=== PATIENT | female | born 1995 | race African-American/Black ===

== ENCOUNTER 2016-06-20 17:08 | Emergency (ER) | payer MEDICAID, OTHER ==
[~2016-06-20] VITALS: Ht 165.1 cm; Wt 65.0 kg
[2016-06-20 17:17] VITALS: BP 123/81; PULSE 74; RESP 15; TEMP 98.8; O2SAT 98
== END 2016-06-20 20:04 | disposition left against medical advice (07) ==
LOC: NED 17:08
DX: Z53.21 Procedure and treatment not carried out due to patient leaving prior to being seen by health care provider (principal)
CPT/HCPCS: 99281

== ENCOUNTER 2016-11-29 15:49 | Emergency (ER) | payer MEDICAID ==
[~2016-11-29] VITALS: Ht 165.1 cm; Wt 61.0 kg
[2016-11-29 15:51] VITALS: BP 125/85; PULSE 79; RESP 15; TEMP 98.4; O2SAT 99
--- NOTE | 2016-11-29 17:23 | PD ---
HPI Chief Complaint: Allergic/Adverse Reaction Time Seen by Provider: 17:22 Travel History International Travel<30 days: No Contact w/Intl Traveler<30days: No Traveled to known affect area: No History of Present Illness HPI 21-year-old female presents to emergency Department with complaint of a rash to her face and anterior neck 3 days. Reports rash is itchy. Denies airway edema , difficulty breathing, shortness of breath, wheezing. Denies new exposures to lotions, soaps, detergents, medications, foods, makeups, environmental exposures. Denies fever, vomiting. Took Benadryl last night or symptom management with relief. Symptoms are mild in severity. No known allergies. Has no other medical complaints. No other modifying factors or associated signs and symptoms. PFSH Past Medical History ?: Not LMP: BC Social History Tobacco Use: No Allergies-Medications (Allergen,Severity, Reaction): Coded Allergies: No Known Allergies (Unverified , 11/29/16) Reported Meds & Prescriptions Reported Meds & Active Scripts Active Deltasone (Prednisone) 20 Mg Tab 40 Mg PO DAILY 4 Days start 11/30/2016 Review of Systems Except as stated in HPI: all other systems reviewed are Neg Physical Exam Narrative GENERAL: Well-nourished, well-developed black female patient, in no acute distress; afebrile, nontoxic-appearing SKIN: Warm and dry. No maculopapular areas that are to the face. Anterior neck is erythemic. No cellulitic process noted. No lymphadenopathy. HEAD: Atraumatic. Normocephalic. EYES: Pupils equal and round. No scleral icterus. No injection or drainage. ENT: Mucosa pink and moist. No erythema or exudates. No uvular edema. No uvular , palatal, or tonsillar deviation. Airway patent. EARS: Bilateral pinnae and external canals appear within normal limits. Bilateral tympanic membranes without erythema, dullness or perforation. NECK: Trachea midline. No lymphadenopathy. CARDIOVASCULAR: Regular rate and rhythm. No murmur appreciated. RESPIRATORY: No accessory muscle use. Clear to auscultation. Breath sounds equal bilaterally. No retractions or tachypnea. No audible wheezing or stridor. GASTROINTESTINAL: Abdomen soft, non-tender, nondistended. Hepatic and splenic margins not palpable. Bowel sounds are active 4 quadrants. MUSCULOSKELETAL: No obvious deformities. No clubbing. No cyanosis. No edema. NEUROLOGICAL: Awake and alert. Oriented 3. No obvious cranial nerve deficits. Motor grossly within normal limits. Normal speech. Moves all extremities. 5/5 strength to all extremities. PSYCHIATRIC: Appropriate mood and affect; insight and judgment normal. Data Data Last Documented VS Vital Signs Date Time Temp Pulse Resp B/P (MAP) Pulse Ox O2 Delivery O2 Flow Rate FiO2 11/29/16 15:51 98.4 79 15 125/85 (98) 99 Orders Orders Prednisone (Deltasone) (11/29/16 17:30) Diphenhydramine (Benadryl) (11/29/16 17:30) [facility] Medical Decision Making Medical Screen Exam Complete: Yes Emergency Medical Condition: Yes Medical Record Reviewed: Yes Differential Diagnosis Contact dermatitis, allergic reaction, hives Narrative Course 21-year-old female physical exam consistent with allergic reaction or contact dermatitis. She is in no acute distress. Airway is patent. She denies shortness of breath, airway edema. Denies new exposures. Benadryl and Deltasone administered in the ER. Ultrasound prescribed for home. Instructed patient to continue to take Benadryl as directed and as needed for rash/ itching. Instructed patient to follow up with dermatology and allergy testing. Instructed patient to follow up with primary care provider. Patient verbalizes understanding and agreement with treatment plan. Patient is medically cleared and stable for discharge. Discussed reasons to return to the emergency department. Patient agrees with treatment plan. The patients vital signs are stable and the patient is stable for outpatient follow-up and treatment. Patient discharged home, stable and in no acute distress. Diagnosis Primary Impression: Rash and nonspecific skin eruption Referrals: Piping Manager Primary Care Physician Patient Instructions: Acute Rash (ED), General Allergic Reaction (ED), General Instructions, Urticaria (ED) Departure Forms: Tests/Procedures, Work Release Enter return to work date: Nov 30, 2016 Additional Instructions: Take oral steroids as prescribed [id number] topicals to reduce itch Benadryl as directed and as needed to reduce itch Follow-up with your primary care provider Return to the emergency department immediately with worsening of symptoms Med/Other Pt SpecificInfo: Prescription(s) given Scripts Prednisone (Deltasone) 20 Mg Tab 40 MG PO DAILY for 4 Days, TAB 0 Refills start 11/30/2016 Prov: Maggie Vázquez 11/29/16 Disposition: 01 DISCHARGE HOME Condition: Stable Maggie Vázquez Nov 29, 2016 17:23
[2016-11-29] MEDS ORDERED: PRED-503 PO (17:25)
[2016-11-29] MEDS ORDERED: predniSONE 20 MG TAB PO ONE (17:30)
[2016-11-29] MEDS ORDERED: diphenhydrAMINE HCL 50 MG CAP PO ONE (17:30)
== END 2016-11-29 17:53 | disposition home or self-care (01) ==
LOC: NEPK 15:49
DX: R21 Rash and other nonspecific skin eruption (principal)
CPT/HCPCS: 99283; J7512; Q0163

== ENCOUNTER 2017-05-16 00:46 | Emergency (ER) | payer MEDICAID ==
[~2017-05-16] VITALS: Ht 165.1 cm; Wt 60.0 kg
[~2017-05-16 00:46] MED LIST: PRED-503 PO
[2017-05-16 00:50] VITALS: BP 142/99; PULSE 87; RESP 16; TEMP 98.1; O2SAT 100
[2017-05-16 01:53] LABS: AUTOMATED NEUTROPHIL # 4.6 TH/MM3 (1.8-7.7); BASOPHIL % 0.2 % (0.0-2.0); EOSINOPHIL # 0.2 TH/MM3 (0-0.4); EOSINOPHIL % 3.4 % (0.0-4.0); HEMATOCRIT 39.3 % (35.0-46.0); HEMOGLOBIN 13.4 GM/DL (11.6-15.3); LYMPH % 26.6 % (9.0-44.0); LYMPHOCYTE # 1.9 TH/MM3 (1.0-4.8); MEAN CELL VOLUME 85.2 FL (80.0-100.0); MEAN CORPUSCULAR HGB CONC 34.1 % (32.0-36.0); MONO % 6.4 % (0.0-8.0); MONOCYTE # 0.5 TH/MM3 (0-0.9); NEUT % 63.4 % (16.0-70.0); PLATELET COUNT 205 TH/MM3 (150-450); RED BLOOD COUNT 4.61 MIL/MM3 (4.00-5.30); RED CELL DISTRIBUTION WIDTH 13.8 % (11.6-17.2); WHITE BLOOD COUNT 7.3 TH/MM3 (4.0-11.0)
[2017-05-16 01:58] LABS: AMORPHOUS SEDIMENT, URINE RARE; BACTERIA, URINE FEW /hpf; BILIRUBIN, URINE NEG (NEG); BLOOD, URINE LARGE (NEG); GLUCOSE,URINE NEG (NEG); KETONE, URINE NEG (NEG); MUCUS URINE MOD /lpf (OCC); NITRITE,URINE NEG (NEG); SQUAMOUS EPITHELIAL CELL URINE 3 /hpf (0-5); URINE COLOR YELLOW (YELLW/STRAW); URINE LEUKOCYTE ESTERASE TRACE (NEG)
--- NOTE | 2017-05-16 02:36 | PD ---
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 The patient states she was on Depo-Provera until September when she switch to oral contraceptive pills. The patient then started oral contraceptive pills, last menstrual cycle was approximately 6 weeks ago, presents today with heavy vaginal bleeding and at 2 weeks duration. The patient states her menstrual cycle has been ongoing for 2 weeks, is heavier than normal. She has not followed up with her account consultant. She denies . She does complain of lower abdominal cramping with the bleeding, but denies any nausea or vomiting. She denies any orthostatic dizziness, lightheadedness, or dyspnea upon exertion. Symptoms are mild. PFSH Past Medical History Medical History: Denies Significant Hx Anemia: Yes Diminished Hearing: No Immunizations Current: Yes Tetanus Vaccination: < 5 Years Influenza Vaccination: No ?: Not LMP: 05/16/17 : 0 Para: 0 Past Surgical History Surgical History: No Previous Surgery Social History Alcohol Use: Yes (occassionaly) Tobacco Use: No Substance Use: No Allergies-Medications (Allergen,Severity, Reaction): Coded Allergies: No Known Allergies (Unverified , 11/29/16) Reported Meds & Prescriptions Reported Meds & Active Scripts Active Deltasone (Prednisone) 20 Mg Tab 40 Mg PO DAILY 4 Days start 11/30/2016 Review of Systems Except as stated in HPI: all other systems reviewed are Neg HENT: No: Lightheadedness Cardiovascular: No: Dyspnea on exertion Respiratory: No: Shortness of Breath Gastrointestinal: No: Nausea, Vomiting, Abdominal Pain Genitourinary: Positive: Pelvic Pain, Menorrhagia, Metorrhagia, Vaginal Bleeding Musculoskeletal: No: Weakness Neurologic: No: Dizziness Physical Exam Narrative GENERAL: Awake, alert, pleasant 21-year-old female who appears her stated age and is in no acute respiratory distress. SKIN: Focused skin assessment warm/dry. HEAD: Atraumatic. Normocephalic. EYES: No pallor noted. GASTROINTESTINAL: Abdomen soft, non-tender, nondistended. Pelvic: Deferred MUSCULOSKELETAL: No obvious deformities. No clubbing. No cyanosis. No edema. NEUROLOGICAL: Awake and alert. No obvious cranial nerve deficits. Motor grossly within normal limits. Normal speech. PSYCHIATRIC: Appropriate mood and affect; insight and judgment normal. Data Data Last Documented VS Vital Signs Date Time Temp Pulse Resp B/P (MAP) Pulse Ox O2 Delivery O2 Flow Rate FiO2 05/16/17 00:50 98.1 87 16 142/99 (113) 100 Orders Orders Complete Blood Count With Diff (05/16/17 01:19) Iv Access Insert/Monitor (05/16/17 01:19) Oxygen Administration (05/16/17 01:19) Oximetry (05/16/17 01:19) Ed Urine Pregnancytest Poc (05/16/17 01:19) Urinalysis - C+S If Indicated (05/16/17 01:38) Urine Culture (05/16/17 01:45) Thyroid Stimulating Hormone (05/16/17 02:31) Free T3 (05/16/17 03:25) Free Thyroxine (T4) (05/16/17 03:25) Labs Laboratory Tests Test 05/16/17 01:30 05/16/17 01:45 05/16/17 02:43 White Blood Count 7.3 TH/MM3 Red Blood Count 4.61 MIL/MM3 Hemoglobin 13.4 GM/DL Hematocrit 39.3 % Mean Corpuscular Volume 85.2 FL Mean Corpuscular Hemoglobin 29.0 PG Mean Corpuscular Hemoglobin Concent 34.1 % Red Cell Distribution Width 13.8 % Platelet Count 205 TH/MM3 Mean Platelet Volume 9.0 FL Neutrophils (%) (Auto) 63.4 % Lymphocytes (%) (Auto) 26.6 % Monocytes (%) (Auto) 6.4 % Eosinophils (%) (Auto) 3.4 % Basophils (%) (Auto) 0.2 % Neutrophils # (Auto) 4.6 TH/MM3 Lymphocytes # (Auto) 1.9 TH/MM3 Monocytes # (Auto) 0.5 TH/MM3 Eosinophils # (Auto) 0.2 TH/MM3 Basophils # (Auto) 0.0 TH/MM3 CBC Comment DIFF FINAL Differential Comment Urine Color YELLOW Urine Turbidity HAZY Urine pH 6.0 Urine Specific [place] 1.020 Urine Protein TRACE mg/dL Urine Glucose (UA) NEG mg/dL Urine Ketones NEG mg/dL Urine Occult Blood LARGE Urine Nitrite NEG Urine Bilirubin NEG Urine Urobilinogen LESS THAN 2.0 MG/DL Urine Leukocyte Esterase TRACE Urine RBC 87 /hpf Urine WBC 12 /hpf Urine Squamous Epithelial Cells 3 /hpf Urine Amorphous Sediment RARE Urine Bacteria FEW /hpf Urine Mucus MOD /lpf Microscopic Urinalysis Comment CULTURE INDICATED Free Thyroxine 1.18 NG/DL Free Triiodothyronine (T3) pg/dL 3.24 PG/ML Thyroid Stimulating Hormone 3rd Gen 4.160 uIU/ML MDM Medical Decision Making Medical Screen Exam Complete: Yes Emergency Medical Condition: Yes Medical Record Reviewed: Yes Interpretation(s) Laboratory Tests Test 05/16/17 01:30 05/16/17 01:45 05/16/17 02:43 White Blood Count 7.3 TH/MM3 Red Blood Count 4.61 MIL/MM3 Hemoglobin 13.4 GM/DL Hematocrit 39.3 % Mean Corpuscular Volume 85.2 FL Mean Corpuscular Hemoglobin 29.0 PG Mean Corpuscular Hemoglobin Concent 34.1 % Red Cell Distribution Width 13.8 % Platelet Count 205 TH/MM3 Mean Platelet Volume 9.0 FL Neutrophils (%) (Auto) 63.4 % Lymphocytes (%) (Auto) 26.6 % Monocytes (%) (Auto) 6.4 % Eosinophils (%) (Auto) 3.4 % Basophils (%) (Auto) 0.2 % Neutrophils # (Auto) 4.6 TH/MM3 Lymphocytes # (Auto) 1.9 TH/MM3 Monocytes # (Auto) 0.5 TH/MM3 Eosinophils # (Auto) 0.2 TH/MM3 Basophils # (Auto) 0.0 TH/MM3 CBC Comment DIFF FINAL Differential Comment Urine Color YELLOW Urine Turbidity HAZY Urine pH 6.0 Urine Specific [place] 1.020 Urine Protein TRACE mg/dL Urine Glucose (UA) NEG mg/dL Urine Ketones NEG mg/dL Urine Occult Blood LARGE Urine Nitrite NEG Urine Bilirubin NEG Urine Urobilinogen LESS THAN 2.0 MG/DL Urine Leukocyte Esterase TRACE Urine RBC 87 /hpf Urine WBC 12 /hpf Urine Squamous Epithelial Cells 3 /hpf Urine Amorphous Sediment RARE Urine Bacteria FEW /hpf Urine Mucus MOD /lpf Microscopic Urinalysis Comment CULTURE INDICATED Free Thyroxine 1.18 NG/DL Free Triiodothyronine (T3) pg/dL 3.24 PG/ML Thyroid Stimulating Hormone 3rd Gen 4.160 uIU/ML Differential Diagnosis Differential diagnosis includes menorrhagia, dysfunctional uterine bleeding, , hyperthyroidism, hypothyroidism, ectopic . Narrative Course Bedside UA test was obtained, was negative. CBC and TSH were sent to lab. CBC is unremarkable. TSH is minimally elevated. Free T3 and free T4 were ordered. Free T4 and free T3 are normal. Patient will be provided a copy of her labs at discharge. She is advised to follow-up with her account consultant. Diagnosis Primary Impression: Vaginal bleeding Additional Impression: Menorrhagia Qualified Codes: N92.1 - Excessive and frequent menstruation with irregular cycle Patient Instructions: General Instructions Additional Instructions: Please provide the patient a copy of her labs at discharge. Follow-up with her account consultant. Return if symptoms worsen or progress. Med/Other Pt SpecificInfo: No Change to Meds Disposition: 01 DISCHARGE HOME Condition: Stable Germán Robles MD May 16, 2017 02:36
[2017-05-16 03:51] LABS: FREE T3 3.24 PG/ML (2.18-3.98); FREE T4 1.18 NG/DL (0.76-1.46)
== END 2017-05-16 04:17 | disposition home or self-care (01) ==
LOC: NEPC 00:46
DX: N92.1 Excessive and frequent menstruation with irregular cycle (principal); R10.2 Pelvic and perineal pain
CPT/HCPCS: 81001; 84439; 84443; 84481; 84703; 85025; 87086; 99283